=== PATIENT | male | born 1980 | race African-American/Black ===

== ENCOUNTER 2018-09-18 15:49 | Emergency (ER) | payer MEDICAID ==
[~2018-09-18] VITALS: Ht 172.7 cm; Wt 86.0 kg
[2018-09-18 16:02] VITALS: BP 173/108
== END 2018-09-18 18:48 | disposition left against medical advice (07) ==
LOC: ER 15:49
DX: Z53.21 Procedure and treatment not carried out due to patient leaving prior to being seen by health care provider (principal)

== ENCOUNTER 2021-04-05 21:07 | Emergency (ER) | payer MEDICAID ==
[~2021-04-05] VITALS: Ht 182.9 cm; Wt 132.0 kg
[2021-04-06] VITALS: BP 155/98
[2021-04-06] MEDS ORDERED: CYCL10TA7 MT (00:11)
[2021-04-06] MEDS ORDERED: IBUP-2029 MT (00:11)
== END 2021-04-06 00:15 | disposition home or self-care (01) ==
LOC: ER 21:07
DX: M54.5 Low back pain (principal); R03.0 Elevated blood-pressure reading, without diagnosis of hypertension; V49.49XA Driver injured in collision with other motor vehicles in traffic accident, initial encounter; Y93.89 Activity, other specified; Y92.488 Other paved roadways as the place of occurrence of the external cause
CPT/HCPCS: 99281